=== PATIENT | female | born 1990 | race Caucasian/White ===

== ENCOUNTER 2019-02-20 08:02 | Emergency (ER) | payer SELFPAY ==
[~2019-02-20] VITALS: Ht 154.9 cm; Wt 59.1 kg
[2019-02-20 08:06] VITALS: BP 115/80; Ht 154.9 cm; Wt 59.1 kg
[2019-02-20] MEDS ORDERED: FLUTICASONE PRO16 GM NASAL (08:18)
[2019-02-20] MEDS ORDERED: AMOXICILLIN500 M1 PO (08:18)
== END 2019-02-20 08:24 | disposition home or self-care (01) ==
LOC: D.ER 08:02
DX: H66.92 Otitis media, unspecified, left ear (principal)